=== PATIENT | female | born 1960 | race Caucasian/White ===

== ENCOUNTER 2018-01-20 10:55 | Inpatient (IN) | payer MEDICAID, MEDICARE ==
[~2018-01-20] VITALS: Ht 170.2 cm; Wt 72.7 kg
[2018-01-20 11:27] LABS: BASOPHILS % (AUTO) 0.2 % (0-1); EOSINOPHILS % (AUTO) 0 % (0-6); HEMATOCRIT 44.7 % (35.0-45.0); HEMOGLOBIN 15.7 g/dl (12.0-16.0); LYMPHOCYTES # (AUTO) 1.7 X10'3 (1.1-4.8); LYMPHOCYTES % (AUTO) 8.8 % (21-51); MEAN CORPUSCULAR HEMOGLOBIN 32.5 PG (27.0-31.0); MEAN CORPUSCULAR HGB CONC 35.2 % (33.0-36.5); MEAN CORPUSCULAR VOLUME 92.3 FL (78-98); MEAN PLATELET VOLUME 6.8 FL (7.4-10.4); MONOCYTES # (AUTO) 0.5 X10'3 (0-0.9); MONOCYTES % (AUTO) 2.7 % (2-12); NEUTROPHILS # (AUTO) 17.5 X10'3 (1.8-7.7); NEUTROPHILS % (AUTO) 88.3 % (42-75); PLATELET COUNT 349 X10'3 (140-440); RED BLOOD COUNT 4.85 X10'6 (4.20-5.60); RED CELL DISTRIBUTION WIDTH 13.6 % (11.5-14.5); WHITE BLOOD COUNT 19.9 X10'3 (4.5-11.0)
[2018-01-20] MEDS ORDERED: morphine 4 MG/ML inj SYRINge IV ONE (11:30)
[2018-01-20] MEDS ORDERED: diphenhydrAMINE 50 mg/ml inj IV ONE (11:30)
[2018-01-20] MEDS ORDERED: metoclopramide 5 mg/ml inj IV ONE (11:30)
[2018-01-20] MEDS ORDERED: normal saline 1000ML IV soln IVB ONE ×2 (11:30)
[2018-01-20] MEDS ORDERED: LORazepam 2 mg/ml vial IV ONE (11:30)
[2018-01-20 11:36] LABS: PROTHROMBIN TIME 9.9 SECONDS (9.0-12.0)
[2018-01-20 11:41] LABS: ALANINE AMINOTRANSFERASE 32 U/L (12-78); ALBUMIN 4.2 G/DL (3.4-5.0); ALKALINE PHOSPHATASE 96 IU/L (46-116); ANION GAP 18 (8-16); ASPARTATE AMINO TRANSFERASE 21 U/L (10-37); BILIRUBIN,TOTAL 0.3 MG/DL (0.1-1.0); BLOOD UREA NITROGEN 16 MG/DL (7-18); BUN/CREATININE RATIO 17.6 (6.6-38.0); CALCIUM 9.5 MG/DL (8.5-10.1); CHLORIDE 102 MMOL/L (99-107); CREATININE 0.91 MG/DL (0.40-0.90); GLUCOSE 146 MG/DL (70-104); POTASSIUM 3.8 MMOL/L (3.5-5.1); SODIUM 140 MMOL/L (135-145); TOTAL CARBON DIOXIDE 19.8 MMOL/L (24-32); TOTAL PROTEIN 8.5 G/DL (6.4-8.2); eGFR 64 ML/MIN
[2018-01-20 11:49] LABS: LIPASE 173 U/L (73-393)
[2018-01-20] MEDS ORDERED: piperacillin/tazo 4.5gm/100ml 100 ML IV STA (12:15)
[2018-01-20] MEDS: normal saline 1000ml 1,000 ML IV SCH ×2 (13:45→23:31)
[2018-01-20 14:45] VITALS: BP 126/65
[2018-01-20] MEDS ORDERED: NO HOME MEDS (16:40)
[2018-01-20] MEDS: morphine 4 MG/ML inj SYRINge IV PRN ×2 (16:55→23:08)
[2018-01-20 18:00] VITALS: BP 125/72
[2018-01-20 19:53] LABS: HEMATOCRIT 39.6 % (35.0-45.0); HEMOGLOBIN 13.8 g/dl (12.0-16.0); MEAN CORPUSCULAR HGB CONC 34.9 % (33.0-36.5); MEAN CORPUSCULAR VOLUME 94.7 FL (78-98); PLATELET COUNT 281 X10'3 (140-440); RED BLOOD COUNT 4.18 X10'6 (4.20-5.60); RED CELL DISTRIBUTION WIDTH 13.8 % (11.5-14.5); WHITE BLOOD COUNT 16.1 X10'3 (4.5-11.0)
[2018-01-20] MEDS: piperacillin/tazo 3.375gm/50ml 50 ML IV SCH (19:53)
[2018-01-20] MEDS ORDERED: ASPI-144 PO (21:34)
[2018-01-20] MEDS ORDERED: SUMA100T PO (21:35)
[2018-01-20] MEDS ORDERED: HYDR-565 PO (21:36)
[2018-01-21] VITALS: BP 135/70
[2018-01-21] MEDS: ondansetron/PF 4mg/2ml inj IV PRN ×2 (00:08→15:13)
[2018-01-21] MEDS ORDERED: temazepam 15mg capsule PO ONE (00:55)
[2018-01-21] MEDS ORDERED: HYDROcodone/acetaminophen 5mg/325mg tablet PO PRN (00:55)
[2018-01-21] MEDS: HYDROcodone/acetaminophen 10/325mg tab PO PRN ×2 (01:20→11:12)
[2018-01-21] MEDS: piperacillin/tazo 3.375gm/50ml 50 ML IV SCH ×3 (01:24→14:10)
[2018-01-21 05:32] LABS: BASOPHILS % (AUTO) 0.3 % (0-1); EOSINOPHILS # (AUTO) 0.4 X10'3 (0-0.9); EOSINOPHILS % (AUTO) 2.5 % (0-6); HEMATOCRIT 37.9 % (35.0-45.0); HEMOGLOBIN 13.3 g/dl (12.0-16.0); LYMPHOCYTES # (AUTO) 2.7 X10'3 (1.1-4.8); LYMPHOCYTES % (AUTO) 19.1 % (21-51); MEAN CORPUSCULAR HEMOGLOBIN 33.1 PG (27.0-31.0); MEAN CORPUSCULAR HGB CONC 34.9 % (33.0-36.5); MEAN CORPUSCULAR VOLUME 94.9 FL (78-98); MEAN PLATELET VOLUME 6.8 FL (7.4-10.4); MONOCYTES # (AUTO) 0.8 X10'3 (0-0.9); MONOCYTES % (AUTO) 5.6 % (2-12); NEUTROPHILS # (AUTO) 10.1 X10'3 (1.8-7.7); NEUTROPHILS % (AUTO) 72.5 % (42-75); PLATELET COUNT 247 X10'3 (140-440); RED CELL DISTRIBUTION WIDTH 13.9 % (11.5-14.5); WHITE BLOOD COUNT 13.9 X10'3 (4.5-11.0)
[2018-01-21 06:03] LABS: ALBUMIN 3.1 G/DL (3.4-5.0); ANION GAP 10 (8-16); BLOOD UREA NITROGEN 8 MG/DL (7-18); BUN/CREATININE RATIO 11.1 (6.6-38.0); CALCIUM 7.8 MG/DL (8.5-10.1); CHLORIDE 111 MMOL/L (99-107); CREATININE 0.72 MG/DL (0.40-0.90); GLUCOSE 111 MG/DL (70-104); POTASSIUM 3.4 MMOL/L (3.5-5.1); SODIUM 144 MMOL/L (135-145); TOTAL CARBON DIOXIDE 23.4 MMOL/L (24-32); eGFR 83 ML/MIN
[2018-01-21 07:00] VITALS: BP 91/54
[2018-01-21] MEDS: normal saline 1000ml 1,000 ML IV SCH ×3 (09:12→22:50)
[2018-01-21] MEDS ORDERED: potassium Cl 20 mEq SR tablet PO PRN (10:45)
[2018-01-21] MEDS ORDERED: magnesium 4gm in 100ml NS 100 ML IV PRN (10:45)
[2018-01-21] MEDS ORDERED: magnesium Cl slow-release 64mg tablet PO PRN (10:45)
[2018-01-21] MEDS ORDERED: magnesium 2GM in 50ml NS 50 ML IV PRN (10:45)
[2018-01-21] MEDS ORDERED: potassium Cl 40MEQ/NS 500ml 500 ML IV PRN ×2 (10:45)
[2018-01-21] MEDS: nicotine 21mg patch - 24 hr TD SCH (10:58)
[2018-01-21 11:00] VITALS: BP 126/67
[2018-01-21] MEDS: potassium Cl 20 mEq SR tablet PO PRN ×3 (11:02→22:48)
[2018-01-21] MEDS ORDERED: PEG 3350/Na sulf,bicarb,Cl/KCl oral sol 4 liter bottle PO ONE (14:00)
[2018-01-21] MEDS: morphine 4 MG/ML inj SYRINge IV PRN (16:37)
[2018-01-21] MEDS: metroNIDAZOLE-Flagyl 500mg/NS 100 ML IV SCH ×2 (16:39→23:26)
[2018-01-21] MEDS: proCHLORperazine 10 MG/2 ml inj IV PRN (16:43)
[2018-01-21] MEDS: levoFLOXACIN-Levaquin 500mg/D5 100 ML IV SCH (17:54)
[2018-01-21 19:00] VITALS: BP 133/73
[2018-01-21] MEDS ORDERED: LORazepam 0.5 MG tablet PO PRN (19:45)
[2018-01-21] MEDS ORDERED: LORazepam 2 mg/ml vial IV PRN (19:45)
[2018-01-22] VITALS (8 sets, daily range): BP systolic 97–119; BP diastolic 46–81
[2018-01-22] MEDS: morphine 4 MG/ML inj SYRINge IV PRN (00:42)
[2018-01-22] MEDS: ondansetron/PF 4mg/2ml inj IV PRN (00:43)
[2018-01-22 04:59] LABS: POTASSIUM 3.8 MMOL/L (3.5-5.1)
[2018-01-22] MEDS: nicotine 21mg patch - 24 hr TD SCH (07:10)
[2018-01-22] MEDS: metroNIDAZOLE-Flagyl 500mg/NS 100 ML IV SCH ×2 (07:13→16:00)
[2018-01-22] MEDS: levoFLOXACIN-Levaquin 500mg/D5 100 ML IV SCH (08:21)
[2018-01-22 09:03] LABS: C DIFF ANTIGEN NEGATIVE (NEGATIVE); C DIFF SPECIMEN=DIARRHEA? ACCEPTABLE; C DIFFICILE TOXINS A&B NEGATIVE (Neg)
[2018-01-22] MEDS: proCHLORperazine 10 MG/2 ml inj IV PRN (09:45)
[2018-01-22] MEDS ORDERED: MIDAZolam 5mg/5ml vial ONE ×2 (14:51→15:16)
[2018-01-22] MEDS ORDERED: fentaNYL/PF 50MCG/1 ML 2ML syringe ONE ×2 (14:51→15:16)
[2018-01-22] MEDS: normal saline 1000ml 1,000 ML IV SCH (15:25)
[2018-01-22] MEDS ORDERED: METR500T PO (16:51)
[2018-01-22] MEDS ORDERED: LEVO500T2 PO (16:51)
[2018-01-22] MEDS ORDERED: normal saline 1000ml 1,000 ML IV SCH (17:48)
[2018-01-22] MEDS ORDERED: simethicone 40mg/0.6ml oral drops 30ml MC ONE (17:50)
[2018-01-22] MEDS ORDERED: fentaNYL/PF 50MCG/1 ML 2ML syringe IV PRN (17:50)
[2018-01-22] MEDS ORDERED: MIDAZolam 5mg/5ml vial IV PRN (17:50)
== END 2018-01-22 17:45 | disposition home or self-care (01) | DRG 377 ==
LOC: ER 10:55 → ED HOLD 13:21 → EDBEDREQ 14:09 → MED 3N 14:30
PROVIDERS: ADMIT Internal Medicine; ATTEND Internal Medicine
DX: K92.2 Gastrointestinal hemorrhage, unspecified (principal); K55.039 Acute (reversible) ischemia of large intestine, extent unspecified; E87.2 Acidosis; K57.92 Diverticulitis of intestine, part unspecified, without perforation or abscess without bleeding; K52.89 Other specified noninfective gastroenteritis and colitis; F32.9 Major depressive disorder, single episode, unspecified; F17.210 Nicotine dependence, cigarettes, uncomplicated; G89.29 Other chronic pain; M54.5 Low back pain; Z88.6 Allergy status to analgesic agent; Z79.899 Other long term (current) drug therapy; Z79.01 Long term (current) use of anticoagulants; Z79.82 Long term (current) use of aspirin
CPT/HCPCS: 36415; 45380; 74176; 80048; 80053; 83690; 83735; 84132; 85025; 85027; 85610; 85651; 86140; 86885; 86900; 86901; 87070; 87324; 87449; 89055; 96361; 96365; 96375; 99285; A4620; G0500; J0780; J1200; J1956; J2060; J2250; J2270; J2405; J2543; J2765; J3010; J3490; J7030